=== PATIENT | male | born 1980 | race American Indian/Alaskan Native ===

== ENCOUNTER 2018-12-03 07:37 | Emergency (ER) | payer SELFPAY ==
--- NOTE | 2018-12-03 09:17 | Emergency Department Report ---
HPI - General Chief Complaint: Upper Respiratory Infection Time Seen by Provider: 12/03/18 09:16 - HPI HPI: 38-year-old -[place] male presents to ED with cough, congestion, runny nose, wheezing, low-grade fever, for 3 days worse today. Patient has been taking albuterol nebs at home with minimal relief. ED Past Medical Hx - Medications Home Medications: Home Medications Medication Instructions Recorded Confirmed Last Taken Type ALBUTEROL NEB's [Proventil 0.083% 2.5 mg IH TID PRN #90 neb 12/03/18 Unknown Rx NEBS] Albuterol Sulfate [Proventil Hfa] 1 puff IH Q6HR PRN 10 Days #1 12/03/18 Unknown Rx [email or web address] Azithromycin [Zithromax Z-PEREZ] 250 mg PO DAILY #6 tablet 12/03/18 Unknown Rx methylPREDNISolone [Medrol] 4 mg PO DAILY #1 tab.ds.pk 12/03/18 Unknown Rx ED Review of Systems ROS: Stated complaint: ÁNGELA Other details as noted in HPI Comment: All other systems reviewed and negative Constitutional: fever Respiratory: cough, wheezing Physical Exam - Physical Exam Vital Signs: Vital Signs 12/03/18 07:59 Temperature 98.3 F Pulse Rate 88 Respiratory 16 Rate Blood Pressure 126/78 [Left] O2 Sat by Pulse 95 Oximetry Physical Exam: Physical Exam: - General Limitations: No Limitations General appearance: alert, in no apparent distress. - Head Head exam: Present: atraumatic, normocephalic - Eye Eye exam: Present: normal appearance - ENT ENT exam: Present: mucous membranes moist - Neck Neck exam: Present: normal inspection - Respiratory Respiratory exam: Present: Scant wheezing bilaterally. Absent: respiratory distress - Cardiovascular Cardiovascular Exam: Present: normal rhythm. Absent: systolic murmur, diastolic murmur, rubs, gallop - GI/Abdominal GI/Abdominal exam: Present: soft, normal bowel sounds - Extremities Exam Extremities exam: Present: normal inspection - Back Exam Back exam: Present: normal inspection - Neurological Exam Neurological exam: Present: alert, oriented X3 - Psychiatric Psychiatric exam: normal affect and mood - Skin Skin exam: Present: warm, dry, intact, normal color. Absent: rash ED Course Vital Signs 12/03/18 07:59 Temperature 98.3 F Pulse Rate 88 Respiratory 16 Rate Blood Pressure 126/78 [Left] O2 Sat by Pulse 95 Oximetry Critical care attestation.: If time is entered above; I have spent that time in minutes in the direct care of this critically ill patient, excluding procedure time. ED Disposition Clinical Impression: Acute bronchitis Qualifiers: Bronchitis organism: unspecified organism Qualified Code(s): J20.9 - Acute bronchitis, unspecified Disposition: DC-01 TO HOME OR SELFCARE Is pt being admited?: No Does the pt Need Aspirin: No Condition: Stable Instructions: Acute Bronchitis (ED) Prescriptions: methylPREDNISolone [Medrol] 4 mg PO DAILY #1 tab.ds.pk ALBUTEROL NEB's [Proventil 0.083% NEBS] 2.5 mg IH TID PRN #90 neb PRN Reason: Wheezing Albuterol Sulfate [Proventil Hfa] 1 puff IH Q6HR PRN 10 Days #1 hfa.[email or web address] PRN Reason: Wheezing Azithromycin [Zithromax Z-PEREZ] 250 mg PO DAILY #6 tablet Referrals: ALFREDO MAX MD [Primary Care Provider] - 3-5 Days
--- NOTE | 2018-12-03 09:51 | XRay Report ---
ROUTINE CHEST, TWO VIEWS: HISTORY: Cough, fever. The trachea, heart, mediastinal contour, lung garibay and bony thorax are unremarkable. IMPRESSION: Unremarkable chest x-ray.
[2018-12-03] MEDS ORDERED: SOLU-Medrol IM ONE (10:21)
[2018-12-03] MEDS ORDERED: PROVENTIL IH ONE (10:21)
[2018-12-04 18:31] VITALS: BP 151/79
== END 2018-12-03 11:36 | disposition home or self-care (01) ==
LOC: ED 07:37
DX: J20.9 Acute bronchitis, unspecified (principal)
CPT/HCPCS: 71046; 94644; 96372; 99283; J2930